=== PATIENT | female | born 1990 | race Caucasian/White ===

== ENCOUNTER 2017-02-26 00:02 | Observation (INO) | payer MEDICAID, OTHER ==
[~2017-02-26] VITALS: Ht 167.6 cm; Wt 83.5 kg
[2017-02-26] MEDS ORDERED: NIFEdipine 10 MG CAPSULE PO ONE (01:00)
== END 2017-02-26 03:35 | disposition home or self-care (01) ==
LOC: 4S 00:02
PROVIDERS: ADMIT Obstetrics & Gynecology; ATTEND Obstetrics & Gynecology
DX: O62.9 Abnormality of forces of labor, unspecified (principal); O26.893 Other specified pregnancy related conditions, third trimester; M54.5 Low back pain; R10.9 Unspecified abdominal pain; Z3A.35 35 weeks gestation of pregnancy
CPT/HCPCS: 59025; 87086; G0378

== ENCOUNTER 2017-03-05 21:04 | Observation (INO) | payer OTHER ==
[~2017-03-05] VITALS: Ht 167.6 cm; Wt 84.4 kg
[2017-03-05 22:21] VITALS: BP 116/77
[2017-03-05] MEDS ORDERED: PREN1TAB80 PO (22:21)
[2017-03-05] MEDS ORDERED: RINGERS SOLUTION,LACTATED 1,000 ML IV SCH (22:45)
[2017-03-05 23:23] LABS: APPEARANCE,URINE CLEAR (CLEAR); GLUCOSE, URINE (UA) NEGATIVE (NEGATIVE); KETONES,URINE NEGATIVE (NEGATIVE); LEUKOCYTE ESTERASE ,URINE SMALL (NEGATIVE); OCCULT BLOOD,URINE NEGATIVE (NEGATIVE); PROTEIN,URINE NEGATIVE (NEGATIVE)
[2017-03-05 23:26] LABS: ADD UA MICROSCOPIC YES
[2017-03-05] MEDS ORDERED: NIFEdipine 10 MG CAPSULE PO ONE (23:45)
[2017-03-05 23:51] LABS: RBC,URINE 0-2 /HPF (0-2); SQUAMOUS EPITHELIAL CELL,UR Few /LPF (None Seen)
[2017-03-06 01:01] LABS: GLUCOSE,POINT OF CARE 86 MG/DL (70-110)
== END 2017-03-06 01:00 | disposition home or self-care (01) ==
LOC: 4S 21:04
PROVIDERS: ADMIT Obstetrics & Gynecology; ATTEND Obstetrics & Gynecology
DX: O62.9 Abnormality of forces of labor, unspecified (principal); O26.893 Other specified pregnancy related conditions, third trimester; R10.9 Unspecified abdominal pain; M54.9 Dorsalgia, unspecified; O46.93 Antepartum hemorrhage, unspecified, third trimester; O99.013 Anemia complicating pregnancy, third trimester; O24.410 Gestational diabetes mellitus in pregnancy, diet controlled; Z3A.36 36 weeks gestation of pregnancy
CPT/HCPCS: 59025; 81001; 82962; 96360; G0378 ×2; J7120

== ENCOUNTER 2017-03-12 11:55 | Observation (INO) | payer OTHER ==
[~2017-03-12] VITALS: Ht 167.6 cm; Wt 83.5 kg
[~2017-03-12 11:55] MED LIST: PREN1TAB80 PO
[2017-03-12 13:10] VITALS: BP 111/69
[2017-03-12] MEDS ORDERED: CeFAZolin 2 GM/DEXTROSE 50 ML IV ONE (14:13)
[2017-03-12] MEDS ORDERED: FentaNYL CITRATE-PF 100 MCG/2 ML VIAL IVP ONE (15:06)
[2017-03-12] MEDS ORDERED: METOCLOPRAMIDE HCL 5 MG/ML 2 ML VIAL IVP ONE (15:06)
[2017-03-12] MEDS ORDERED: PROPOFOL 1% 20 ML VIAL IVP ONE (15:06)
[2017-03-12] MEDS ORDERED: MIDAZOLAM HCL 2 MG/2 ML VIAL IVP ONE (15:06)
[2017-03-12] MEDS ORDERED: EPHEDrine SULFATE 50 MG/ML VIAL IM ONE (15:06)
[2017-03-12] MEDS ORDERED: ONDANSETRON HCL 4 MG/2 ML VIAL IVP ONE (15:06)
[2017-03-28] MEDS ORDERED: FERS325 PO (11:41)
== END 2017-03-12 15:07 | disposition home or self-care (01) ==
LOC: 4S 11:55
PROVIDERS: ADMIT Obstetrics & Gynecology; ATTEND Obstetrics & Gynecology
DX: O34.33 Maternal care for cervical incompetence, third trimester (principal); Z3A.37 37 weeks gestation of pregnancy
CPT/HCPCS: 59025; G0378; J0690; J2250; J2405; J2704; J2765; J3010; J3490; 96360; 96361

== ENCOUNTER 2017-03-24 23:57 | Observation (INO) | payer OTHER ==
[~2017-03-24] VITALS: Ht 167.6 cm; Wt 89.4 kg
[2017-03-25 00:59] VITALS: BP 121/73
[2017-03-28] MEDS ORDERED: FERS325 PO (11:41)
== END 2017-03-25 02:10 | disposition home or self-care (01) ==
LOC: 4S 23:57
PROVIDERS: ADMIT Obstetrics & Gynecology; ATTEND Obstetrics & Gynecology
DX: O62.9 Abnormality of forces of labor, unspecified (principal); O42.92 Full-term premature rupture of membranes, unspecified as to length of time between rupture and onset of labor; Z3A.38 38 weeks gestation of pregnancy
CPT/HCPCS: 59025; G0378

== ENCOUNTER 2017-03-26 12:15 | Inpatient (IN) | payer OTHER ==
[~2017-03-26] VITALS: Ht 167.6 cm; Wt 88.5 kg
[2017-03-26 12:49] VITALS: BP 119/67
[2017-03-26 15:12] LABS: GLUCOSE COMMENT 1 Doctor Notified; GLUCOSE,POINT OF CARE 73 MG/DL (70-110)
[2017-03-26] MEDS ORDERED: OXYTOCIN 30 UNITS/LACT RINGERS 500 ML IV PRN (16:39)
[2017-03-26] MEDS ORDERED: RINGERS SOLUTION,LACTATED 1,000 ML IV PRN (16:39)
[2017-03-26] MEDS ORDERED: LIDOCAINE HCL/PF 1% 30 ML VIAL INJ PRN (16:45)
[2017-03-26] MEDS ORDERED: METOCLOPRAMIDE HCL 5 MG/ML 2 ML VIAL IVP PRN (16:45)
[2017-03-26] MEDS ORDERED: CITRIC ACID/SODIUM CITRATE 30 ML SOLUTION UDCUP PO PRN (16:45)
[2017-03-26] MEDS: RINGERS SOLUTION,LACTATED 1,000 ML IV SCH (17:08)
[2017-03-26 17:15] LABS: BASOPHILS % (AUTO) 0.2 % (0.0-2.0); EOSINOPHILS % (AUTO) 0.7 % (1.0-6.0); HEMATOCRIT 31.4 % (36-46); HEMOGLOBIN 10.3 g/dL (12.0-16.0); LYMPHOCYTES # (AUTO) 2.1 K/uL (1.0-4.8); LYMPHOCYTES % (AUTO) 18.7 % (22.0-44.0); MEAN CORPUSCULAR HEMOGLOBIN 28.7 pg (26.0-34.0); MEAN CORPUSCULAR HGB CONC 32.9 G/dL (31.0-37.0); MEAN CORPUSCULAR VOLUME 87 fL (80-100); MONOCYTES # (AUTO) 0.6 K/uL (0.1-1.0); MONOCYTES % (AUTO) 5.1 % (2.0-9.0); NEUTROPHILS # (AUTO) 8.3 K/uL (1.8-7.7); NEUTROPHILS % (AUTO) 75.3 % (40.0-70.0); RED BLOOD CELL COUNT(AUTO) 3.59 MIL/uL (4.00-5.20); RED CELL DISTRIBUTION WIDTH 14.3 % (11.5-14.5); WHITE BLOOD COUNT (AUTO) 11.1 K/uL (4.5-11.0)
[2017-03-26] MEDS ORDERED: OXYGEN THERAPY IH SCH (20:00)
[2017-03-27] MEDS: RINGERS SOLUTION,LACTATED 1,000 ML IV SCH ×2 (01:23→09:25)
[2017-03-27] MEDS ORDERED: FentaNYL/BUPIV 0.125%/NS/PF 200 ML ED ONE (13:37)
[2017-03-27] MEDS: FentaNYL CITRATE-PF 100 MCG/2 ML VIAL IVP PRN ×2 (13:38→13:43)
[2017-03-27] MEDS ORDERED: BUPIVACAINE HCL/PF 0.25% 30 ML VIAL ONE (13:40)
[2017-03-27] MEDS ORDERED: FentaNYL/BUPIV 0.125%/NS/PF 200 ML ED PRN (14:17)
[2017-03-27] MEDS ORDERED: DiphenhydrAMINE HCL 50 MG/ML VIAL IVP PRN (14:30)
[2017-03-27] MEDS ORDERED: ONDANSETRON HCL 4 MG/2 ML VIAL IVP PRN (14:30)
[2017-03-27] MEDS ORDERED: OXYTOCIN 20 UNITS in RINGERS SOLUTION,LACTATED 1,000 ML IV ONE (19:34)
[2017-03-27] MEDS ORDERED: OXYTOCIN 30 UNITS/LACT RINGERS 500 ML IV ONE (19:34)
[2017-03-27] MEDS ORDERED: GLYCERIN/WITCH HAZEL LEAF 40 PADS JAR TP PRN (22:15)
[2017-03-27] MEDS ORDERED: IBUPROFEN 600 MG TABLET PO PRN (22:15)
[2017-03-27] MEDS ORDERED: ACETAMINOPHEN/CODEINE 300-30 MG TABLET PO PRN (22:15)
[2017-03-27] MEDS ORDERED: LANOLIN 7 GM OINTMENT TP PRN (22:15)
[2017-03-27] MEDS ORDERED: BENZOCAINE 20%/MENTHOL 56 GM SPRAY CANISTER TP PRN (22:15)
[2017-03-28] MEDS: MEASLES/MUMPS/RUBELLA VACCINE, LIVE 0.5 ML/VIAL SQ ONE (00:30)
[2017-03-28 08:35] LABS: BASOPHILS # (AUTO) 0.02 K/uL (0.00-0.20); BASOPHILS % (AUTO) 0.1 % (0.0-2.0); EOSINOPHILS # (AUTO) 0.03 K/uL (0.00-0.70); EOSINOPHILS % (AUTO) 0.17 % (1.0-6.0); HEMOGLOBIN 9.2 g/dL (12.0-16.0); LYMPHOCYTES # (AUTO) 1.7 K/uL (1.0-4.8); LYMPHOCYTES % (AUTO) 10.7 % (22.0-44.0); MEAN CORPUSCULAR HGB CONC 32.9 G/dL (31.0-37.0); MEAN CORPUSCULAR VOLUME 88 fL (80-100); MONOCYTES # (AUTO) 0.7 K/uL (0.1-1.0); MONOCYTES % (AUTO) 4.7 % (2.0-9.0); NEUTROPHILS # (AUTO) 13.2 K/uL (1.8-7.7); NEUTROPHILS % (AUTO) 84.3 % (40.0-70.0); RED BLOOD CELL COUNT(AUTO) 3.18 MIL/uL (4.00-5.20); RED CELL DISTRIBUTION WIDTH 15.1 % (11.5-14.5); WHITE BLOOD COUNT (AUTO) 15.7 K/uL (4.5-11.0)
[2017-03-28] MEDS: MAGNESIUM HYDROXIDE SUSPENSION 30 ML UDCUP PO PRN ×2 (09:26→20:38)
[2017-03-28] MEDS: SENNA/DOCUSATE SODIUM 187-50 MG TABLET PO PRN ×3 (09:26→20:38)
[2017-03-28] MEDS ORDERED: IBUP-2070 PO (11:36)
[2017-03-28] MEDS ORDERED: DSS100 PO (11:38)
[2017-03-28] MEDS ORDERED: FERR-89 PO (11:41)
[2017-03-28 16:18] VITALS: BP 127/63
[2017-03-29] MEDS: MEASLES/MUMPS/RUBELLA VACCINE, LIVE 0.5 ML/VIAL SQ ONE (11:55)
[2017-03-29] MEDS: SENNA/DOCUSATE SODIUM 187-50 MG TABLET PO PRN (12:09)
[2017-03-29] MEDS: MAGNESIUM HYDROXIDE SUSPENSION 30 ML UDCUP PO PRN (12:09)
== END 2017-03-29 11:30 | disposition home or self-care (01) | DRG 560 ==
LOC: 4S 12:15 → OBSVTOIN 12:15
PROVIDERS: ADMIT Obstetrics & Gynecology; ATTEND Obstetrics & Gynecology
PROC: 10E0XZZ Delivery of Products of Conception, External Approach (ICD-10-PCS; principal; 2017-03-27)
PROC: 00HU33Z Insertion of Infusion Device into Spinal Canal, Percutaneous Approach (ICD-10-PCS; 2017-03-27)
PROC: 3E0R3CZ (ICD-10-PCS; 2017-03-27)
DX: O34.33 Maternal care for cervical incompetence, third trimester (principal); O70.1 Second degree perineal laceration during delivery; Z53.29 Procedure and treatment not carried out because of patient's decision for other reasons; Z91.02 Food additives allergy status; Z37.0 Single live birth; Z3A.39 39 weeks gestation of pregnancy
CPT/HCPCS: 82962; 85461; 86850; 86870; 86900; 86901; 90707; J2405; J2590; J3010; J3490; J7120